=== PATIENT | male | born 1990 | race Caucasian/White ===

== ENCOUNTER 2023-10-11 17:48 | Emergency (ER) | payer MEDICAID ==
[~2023-10-11] VITALS: Ht 165.1 cm; Wt 72.6 kg
[2023-10-11] MEDS ORDERED: THIAMINE HCL 100 MG TABLET PO ONE (18:00)
[2023-10-11] MEDS ORDERED: CHLO25CA22 PO (18:02)
[2023-10-11] MEDS ORDERED: LEVE250T2 PO (18:02)
[2023-10-11] MEDS ORDERED: THIAMINE HCL 100 MG TABLET ONE (18:06)
[2023-10-11 18:07] LABS: BASOPHILS # (AUTO) 0.1 K/UL (0.0-0.2); BASOPHILS % (AUTO) 0.9 % (0.0-2.0); EOSINOPHILS # (AUTO) 0.2 K/uL (0.0-0.7); HEMATOCRIT 42.9 % (36.7-47.1); HEMOGLOBIN 14.7 g/dL (12.5-16.3); LYMPHOCYTES # (AUTO) 1.8 K/uL (0.8-4.8); LYMPHOCYTES % (AUTO) 27.1 % (20.5-51.5); MEAN CORPUSCULAR HEMOGLOBIN 32.7 uug (23.8-33.4); MEAN CORPUSCULAR HGB CONC 34 g/dL (32.5-36.3); MEAN CORPUSCULAR VOLUME 95.2 fL (73.0-96.2); MONOCYTES # (AUTO) 0.8 K/uL (0.1-1.30); MONOCYTES % (AUTO) 12.9 % (0.0-11.0); NEUTROPHILS # (AUTO) 3.6 K/uL (1.8-8.9); NEUTROPHILS % (AUTO) 56.1 % (38.5-71.5); PLATELET COUNT (AUTO) 217 K/uL (152-348); RED BLOOD CELL COUNT(AUTO) 4.51 MIL/uL (4.06-5.63); RED CELL DISTRIBUTION WIDTH 12.8 % (12.1-16.2); WHITE BLOOD COUNT (AUTO) 6.5 K/uL (3.6-10.2)
[2023-10-11 18:16] LABS: DIFFERENTIAL COMMENT 1
[2023-10-11 18:27] LABS: ALBUMIN 4.1 g/dL (3.4-5.0); BILIRUBIN,DIRECT 0.2 mg/dL (0.0-0.2); BILIRUBIN,TOTAL 0.4 mg/dL (0.2-1.0); CALCIUM 9.2 mg/dL (8.5-10.1); CREATININE 0.9 mg/dL (0.6-1.3); MAGNESIUM 2.2 mg/dL (1.8-2.4); POTASSIUM 3.5 mmol/L (3.5-5.1); TOTAL PROTEIN, SERUM 8.4 g/dL (6.4-8.2)
[2023-10-11 22:58] VITALS: BP 128/88; O2SAT 97
== END 2023-10-11 22:59 | disposition home or self-care (01) ==
LOC: ER 17:51
DX: K70.10 Alcoholic hepatitis without ascites (principal); F10.229 Alcohol dependence with intoxication, unspecified; Z79.899 Other long term (current) drug therapy; Y90.0 Blood alcohol level of less than 20 mg/100 ml
CPT/HCPCS: 36415; 83735; 85025; A4606; A4663; G0480